=== PATIENT | male | born 1970 | race Two or more races ===

== ENCOUNTER 2020-06-04 09:20 | Outpatient (REF) | payer MEDICAID, SELFPAY | END 2020-06-04 09:21 | disposition home or self-care (01) | LOC: HO.LAB 09:20 | PROVIDERS: Visit Provider Internal Medicine | DX: Z20.822 Contact with and (suspected) exposure to COVID-19 (principal) | CPT/HCPCS: 36415; C9803; U0003; U0005 ==

== ENCOUNTER 2023-02-14 13:35 | Outpatient (AMB) | payer OTHER, SELFPAY ==
--- NOTE | 2023-02-14 13:36 | A.OFFPC_ITS ---
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: No Accompanied by: Self / Same As Patient Allergies No Known Allergies Allergy (Verified 02/14/23 13:47) Medication List - Last Reconciled 02/14/23 by Ladonna Tillman MD No Known Home Meds Tobacco use date assessed: 07/07/22 Dental Screening Dental Screen Date: 02/14/23 Did you have a dental visit in the last 12 months?: No Did you have a dental problem in the last 6 months where you did not have access to dental care?: No Was dental information given to patient?: Patient has dentist HPI HPI Comments History of Present Illness Details This is a 52-year-old male with history of hypertension that has been well controlled with diet and exercise. No chest pain or shortness of breath. Did not did Cologuard and will be referred for colonoscopy for screening for colon cancer. [facility] Surgical History History of vasectomy Family History Mother Alzheimer disease Father Myocardial infarction Social History Housing: Apartment Alcohol intake: never Patient Tobacco Use Status: Never used Tobacco e-Cigarette/Vaping Use: Never Used Second Hand Smoke Exposure: No service: No Current occupational status: employed Current occupational exposures/hazards: No Cognitive needs: No Hearing needs: No Vision needs: Yes Questionnaire Thrive Questionnaire Date Thrive assessed: 07/07/22 AVA-7 AMB Questionnaire AVA-7 Date AVA - 7 assessed: 07/07/22 Source: Developed by Drs. Yeyo Pompa, Ling Brantley, Devendra Hill and colleagues, with an educational sylvester from [employer] Review of Systems Const All systems reviewed & are unremarkable except as noted in HPI and below Eyes Reports no additional complaints, Denies change in vision and Denies other visual disturbances Card Denies chest pain at rest, Denies chest pain with activity, Denies edema, Denies irregular heart rhythm, Denies claudication, Denies dyspnea, Denies dyspnea on exertion, Denies orthopnea, Denies paroxysmal nocturnal dyspnea and Denies slow heart rate Resp Denies cough, Denies dyspnea and Denies dyspnea on exertion GI Denies abdominal pain, Denies change in bowel habits, Denies excessive flatus, Denies nausea and Denies vomiting Denies urinary hesitancy, Denies urinary incontinence and Denies urinary urgency Musc Denies abnormal gait, Denies atrophy, Denies deformity and Denies limited range of motion Skin/Breast Denies bleeding lesions, Denies changing lesions and Denies rash Neuro Denies abnormal gait and Denies lack of coordination Physical exam (Primary Care) Vital Signs: Last Vital Signs Pulse 79 02/14/23 13:37 BP 132/92 H 02/14/23 13:37 Pulse Ox 97 02/14/23 13:37 Oxygen Delivery Method Room Air 02/14/23 13:37 BMI result Body Mass Index 28.4 Tobacco/Smoking Status: Tobacco use Status Tobacco use date assessed 07/07/22 02/14/23 13:42 Patient Tobacco Use Status Never used Tobacco 02/14/23 13:42 e-Cigarette/Vaping Use Never Used 02/14/23 13:42 Thrive Assessment: Date of Thrive Assessment Date Thrive assessed 07/07/22 02/14/23 13:42 Eyes General: appearance normal, both eyes and all related structures Eyelids: Yes eyelids normal Conjunctivae: conjunctivae normal Neck Neck: Yes normal visual inspection and Yes supple Resp Effort & Inspection: normal respiratory effort Auscultation: clear to auscultation bilaterally Cardio Jugular venous distension: no JVD Rate: regular rate Rhythm: regular rhythm Heart sounds: S1 normal heart sound present and S2 normal heart sound present Extrem General: Yes full ROM Office Procedures Flu Questionnaire Does the patient have a severe egg allergy?: No Does the patient have severe life threatening allergies?: No Does the patient have a fever or illness today?: No Has the patient ever had Guillain-Madison Syndrome?: No Has the patient ever had any past reaction to a flu shot?: No Immunizations flu vacc [id number] 6mos up(PF) 60 mcg(15 mcgx4)/0.5 mL IM syringe Performing Provider: Ladonna Tillman MD [place] [facility] [place] [facility] Administered by: LORNA Reagan on 02/14/23 13:58 Dose Route Admin Location Dispensed Lot Number Expiration Date 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 VIS Given Date VIS Provided VIS Publication Date 02/14/23 Single Vaccine 20 Eligibility Eligibility Date Funding Source Not [place] Eligible 02/14/23 Private Assessment and Plan Assessment & Plan (1) Hypertension: Code(s): I10 - Essential (primary) hypertension Plan: Continue diet and exercise. Blood pressure goal is equal or less than 130/80. Orders: Orders Influenza [id number] Immunization Today Z23 - Encounter for immunization Referrals Open Access Screening Colonoscopy Referral Z12.11 - Encounter for screening for malignant neoplasm of colon Coding Level of Care Code Est Pt Level 3 (21395) Diagnoses Hypertension I10 Time Spent (min) 17
[2023-02-14 13:37] VITALS: BP 132/92; PULSE 79; O2SAT 97; BMI 28.4
== END 2023-02-14 13:58 | disposition home or self-care (01) ==
PROVIDERS: PCP Nurse Practitioner Family; Visit Provider Internal Medicine
DX: Z23 Encounter for immunization (principal); I10 Essential (primary) hypertension
CPT/HCPCS: 90471; 90686; 99213

== ENCOUNTER 2023-06-26 13:45 | Outpatient (AMB) | payer OTHER, SELFPAY ==
[2023-06-26 13:54] VITALS: BP 140/85; PULSE 73; BMI 29.0
--- NOTE | 2023-06-26 13:54 | MHC.OFFVIS ---
Intake Vital Signs 06/26/23 13:54 Height 5 ft 9 in Weight 196 lb 10.437 oz BMI 29.0 BP 140/85 H Blood Pressure Location Lt brachial Position Sitting Pulse 73 Intake Visit Reasons: Colonoscopy Screening Intake Note: New patient presents to in office visit today for colonoscopy screening. CC: This will be patient's first colonoscopy. Denies having any GI symptoms. Vice President Education Required: No Allergies No Known Allergies Allergy (Verified 06/26/23 13:59) HPI Colonoscopy Screening HPI Details 52 year old? male here today for pre colonoscopy screening.? Patient was sent to us by his PCP.? This is his first colonoscopy screening.? Patient denies any gastrointestinal symptoms in the past or at present.? Denies any personal or family history of gastrointestinal disease, colon polyps, or cancer.? Denies history of difficulty with sedation or anesthesia in the past.? Negative for history of sleep apnea.? Denies any history of cardiac, renal, pulmonary, or hepatic disease.?? No history of infectious? diseases like hepatitis A, B, C, HIV or tuberculosis.? Patient is not on any anticoagulation therapy. [facility] Surgical History History of vasectomy Family History Mother Alzheimer disease Father Myocardial infarction Social History Housing: Apartment Alcohol intake: never Patient Tobacco Use Status: Never used Tobacco e-Cigarette/Vaping Use: Never Used Second Hand Smoke Exposure: No service: No Current occupational status: employed Current occupational exposures/hazards: No Cognitive needs: No Hearing needs: No Vision needs: Yes Review of Systems Const Denies weight gain and Denies weight loss ENT Reports no additional complaints, Denies dysphagia and Denies odynophagia Card Reports no additional complaints Resp Reports no additional complaints GI Denies abdominal pain, Denies belching, Denies melena, Denies bloating, Denies change in bowel habits, Denies dysphagia, Denies excessive flatus, Denies dyspepsia, Denies heartburn, Denies diarrhea, Denies loose stools, Denies nausea, Denies odynophagia and Denies vomiting Reports no additional complaints Musc Reports no additional complaints Neuro Reports no additional complaints Psych Reports no additional complaints Endo Reports no additional complaints Physical Exam Vital Signs: Last Vital Signs Pulse 73 06/26/23 13:54 BP 140/85 H 06/26/23 13:54 BMI result Body Mass Index 29.0 Const General: healthy appearing, no acute distress and well developed Nutritional Appearance: well nourished Orientation/consciousness: patient oriented x3 Resp Effort & Inspection: normal respiratory effort, able to speak in complete sentences, no tracheal deviation and symmetric chest movement Auscultation: clear to auscultation bilaterally Cardio Rate: regular rate GI Inspection: Yes normal to inspection and No distended Palpation (GI): Soft to palpation, not firm, nontender and No hepatosplenomegaly present Auscultation: normal bowel sounds General: Yes no CVA tenderness Back/Spine/Pelvis Back: no CVA tenderness Skin General skin exam: elasticity normal, turgor normal and dry skin Neuro General: patient oriented x3 Psych Appearance: grossly normal Mental Status: mental status grossly normal Assessment & Plan Assessment & Plan (1) Screen for colon cancer: Code(s): Z12.11 - Encounter for screening for malignant neoplasm of colon Plan Patient denies any GI, cardiac or respiratory symptoms.? Denies any issues with anesthesia in the past.? Denies any history of sleep apnea.? No history infectious diseases in the past or present.? Not on any anticoagulation therapy.? No family or personal history of colon cancer or polyps.? Patient denies melena, hematochezia, unintentional weight loss or ribbon like stools.? Discussed at length the pre-procedure,? prep, diet & medications as well as what to expect prior, during and after the procedure.?? Stressed the importance of good bowel prep. ?Recommended the use of Vaseline or Calmoseptine OTC & baby wipes with bowel movements to promote comfort.? ?Patient verbalizes understanding and agrees to plan of care.? He was given the opportunity to ask questions and all questions answered.? We will see him after the procedure.? Medications: New bisacodyl (Dulcolax (bisacodyl)) take 4 tabs at noon the day before your colonoscopy 20 mg (4 x 5 mg) PO ONCE 1 day 4 tabs 0RF Z12.11 - Encounter for screening for malignant neoplasm of colon polyethylene glycol 3350 (Miralax) As directed by gastroenterology department at [facility] 238 grams PO ONCE 238 grams 0RF Z12.11 - Encounter for screening for malignant neoplasm of colon Coding Level of Care Code New Pt Level 3 (34100) Diagnoses Screen for colon cancer Z12.11 Time Spent (min) 40 Comment 30 minutes spent with patient and additional 10 minutes spent reviewing his records
== END 2023-06-26 14:45 | disposition home or self-care (01) ==
PROVIDERS: PCP Nurse Practitioner Family; Visit Provider Nurse Practitioner Family
DX: Z12.11 Encounter for screening for malignant neoplasm of colon (principal); Z01.818 Encounter for other preprocedural examination
CPT/HCPCS: 99203

== ENCOUNTER → 2023-06-26 13:45 | Outpatient (BNVA) | payer OTHER, SELFPAY | PROVIDERS: PCP Nurse Practitioner Family; Visit Provider Nurse Practitioner Family | DX: Z12.11 Encounter for screening for malignant neoplasm of colon (principal) | CPT/HCPCS: 99202 ==

== ENCOUNTER 2023-07-17 06:57 | Outpatient (REF) | payer OTHER, SELFPAY ==
[2023-07-17 08:06] LABS: Alanine Aminotransferase 21 U/L (0-40); Albumin Level 3.9 g/dL (3.5-5.0); Alkaline Phosphatase 79 U/L (39-117); Anion Gap 12 (12-20); Aspartate Amino Transferase 24 U/L (5-37); Bilirubin Total 0.6 mg/dL (0.0-1.0); Blood Urea Nitrogen 13 mg/dL (9-16); Calcium 9.1 mg/dL (8.4-10.2); Carbon Dioxide 24 mmol/L (22-29); Chloride 109 mmol/L (96-108); Cholesterol 195 mg/dL (<200); Estimated Glomerular Filt Rate > 60; Glucose Fasting 96 mg/dL (60-99); HDL Cholesterol 53 mg/dL (>40); LDL Cholesterol Calculated 132 mg/dL (<100); Potassium 3.8 mmol/L (3.3-5.1); Sodium 141 mmol/L (135-145); Total Protein 7.2 g/dL (6.5-8.0); Triglycerides 52 mg/dL (<150)
== END 2023-07-17 06:58 | disposition home or self-care (01) ==
LOC: HO.LAB 06:57
PROVIDERS: PCP Internal Medicine; Visit Provider Internal Medicine
DX: I10 Essential (primary) hypertension (principal)
CPT/HCPCS: 36415; 80053; 80061

== ENCOUNTER 2023-07-19 14:00 | Outpatient (AMB) | payer OTHER, SELFPAY ==
--- NOTE | 2023-07-19 14:04 | MHC.PC.OV ---
Vital Signs 07/19/23 14:05 Height 5 ft 9 in Weight 192 lb BMI 28.4 BP 120/82 Blood Pressure Location Lt brachial Position Sitting Intake Visit Reasons: pe Intake Note: Patient here for a physical exam Staff Physical Therapy Assistant Required: No Accompanied by: Self / Same As Patient Allergies No Known Allergies Allergy (Verified 07/19/23 14:11) Medication List - Last Reconciled 07/19/23 by Ladonna Tillman MD bisacodyl (Dulcolax (bisacodyl)) 20 mg (4 x 5 mg) PO ONCE 1 day polyethylene glycol 3350 (Miralax) 238 grams PO ONCE Tobacco use date assessed: 07/19/23 Dental Screening Dental Screen Date: 07/19/23 Did you have a dental visit in the last 12 months?: Yes Did you have a dental problem in the last 6 months where you did not have access to dental care?: No Was dental information given to patient?: Patient has dentist HPI HPI Comments History of Present Illness Details This is a 52-year-old male that comes for his physical exam. Had microscopic hematuria in the past and had nephrolithiasis. Urinalysis will be repeated. No history of cancer in the family. Colonoscopy will be done in August 2023. No chest pain or shortness of breath. [facility] Surgical History History of vasectomy Family History Mother Alzheimer disease Father Myocardial infarction Social History Housing: Apartment Alcohol intake: never Patient Tobacco Use Status: Never used Tobacco e-Cigarette/Vaping Use: Never Used Second Hand Smoke Exposure: No service: No Current occupational status: employed Current occupational exposures/hazards: No Cognitive needs: No Hearing needs: No Vision needs: Yes Questionnaire PHQ-9 Over the last 2 weeks, how often have you been bothered by any of the following problems? 1. Little interest or pleasure in doing things: not at all 2. Feeling down, depressed, or hopeless: not at all 3. Trouble falling or staying asleep, or sleeping too much: not at all 4. Feeling tired or having little energy: not at all 5. Poor appetite or overeating: not at all 6. Feeling bad about yourself - or that you are a failure or have let yourself or your family down: not at all 7. Trouble concentrating on things, such as reading the newspaper or watching television: not at all 8. Moving or speaking so slowly that other people could have noticed. Or the opposite - being so fidgety or restless that you have been moving around a lot more than usual: not at all 9. Thoughts that you would be better off or of hurting yourself in some way: not at all Total score: 0 Depression Screening Interpretation: Negative Depression Screening Done: Yes 81116 - PHQ-9 Billing: Yes Source: Developed by Drs. Yeyo Pompa, Ling Brantley, Devendra Hill and colleagues, with an educational sylvester from [employer]. Thrive Questionnaire Date Thrive assessed: 07/19/23 I am a: Patient What is your living situation today?: I have a steady place to live Within the past 12 months, did the food you bought not last and you didn't have the money to get more?: Never true Within the past 12 months, did you worry whether your food would run out before you got money to buy more?: Never true Do you have trouble paying for medicines?: No Do you have trouble getting transportation to medical appointments?: No Do you have trouble paying your heating and electricity bill?: No Do you have trouble taking care of your child, family member or friend?: No Do you have trouble with day-to-day activities such as bathing, preparing meals, shopping, managing finances, etc.?: No Are you currently unemployed and looking for a job?: No Are you interested in more education?: No Please select the resources that you would like help with: None Currently or been in a relationship where the following occur: no concerns reported THRIVE Score: 0 AUDIT C Alcohol Use Questionnaire (AUDIT-C) 1. How often do you have a drink containing alcohol?: Never Total Score: 0 Score Reviewed/Action Taken: No AVA-7 AMB Questionnaire AVA-7 Date AVA - 7 assessed: 07/19/23 Feeling nervous, anxious, or on edge: 0 = Not at all Not being able to stop or control worryin = Not at all Worrying too much about different things: 0 = Not at all Trouble relaxin = Not at all Being so restless that it is hard to sit still: 0 = Not at all Becoming easily annoyed or irritable: 0 = Not at all Feeling afraid as if something awful might happen: 0 = Not at all Total AVA-7 score (0-4 normal; 5-9 mild; 10-14 moderate; 15-21 severe): 0 Source: Developed by Drs. Yeyo Pompa, Ling Brantley, Devendra Hill and colleagues, with an educational sylvester from [employer]. AVA-7 Assessment Billing AVA-7 Assessment Tool: AVA-7 Assessment 31737 Review of Systems Const All systems reviewed & are unremarkable except as noted in HPI and below Eyes Reports no additional complaints, Denies change in vision and Denies other visual disturbances Card Denies chest pain at rest, Denies chest pain with activity, Denies edema, Denies irregular heart rhythm, Denies claudication, Denies dyspnea, Denies dyspnea on exertion, Denies orthopnea, Denies paroxysmal nocturnal dyspnea and Denies slow heart rate Resp Denies cough, Denies dyspnea and Denies dyspnea on exertion GI Denies abdominal pain, Denies change in bowel habits, Denies excessive flatus, Denies nausea and Denies vomiting Denies urinary hesitancy, Denies urinary incontinence and Denies urinary urgency Musc Denies abnormal gait, Denies atrophy, Denies deformity and Denies limited range of motion Skin/Breast Denies bleeding lesions, Denies changing lesions and Denies rash Neuro Denies abnormal gait, Denies behavioral changes, Denies confusion and Denies lack of coordination Psych Denies behavioral changes and Denies confusion Endo Denies cold intolerance Jean-Claude/Lymph Denies easy bleeding and Denies easy bruising Aller/Immun Denies urticaria Physical exam (Primary Care) Vital Signs: Last Vital Signs BP 120/82 07/19/23 14:05 BMI result Body Mass Index 28.4 Tobacco/Smoking Status: Tobacco use Status Tobacco use date assessed 07/19/23 07/19/23 14:09 Patient Tobacco Use Status Never used Tobacco 07/19/23 14:09 e-Cigarette/Vaping Use Never Used 07/19/23 14:09 PHQ-9: PHQ-9 Score PHQ-9: Total score 0 07/19/23 15:17 Depression Screening Interpretation: Negative Thrive Assessment: Date of Thrive Assessment Date Thrive assessed 07/19/23 07/19/23 14:09 Currently or been in a relationship where the following occur: no concerns reported Const General: No confusion Orientation/consciousness: patient oriented x3 and No confusion HENMT Head: Yes normal to inspection, Yes normocephalic and Yes atraumatic Ears: external ears normal General nose exam: Normal external nose present and No nasal discharge present Eyes General: appearance normal, both eyes and all related structures Eyelids: Yes eyelids normal Conjunctivae: conjunctivae normal Neck Neck: Yes normal visual inspection and Yes supple Resp Effort & Inspection: normal respiratory effort Auscultation: clear to auscultation bilaterally Cardio Jugular venous distension: no JVD Rate: regular rate Rhythm: regular rhythm Heart sounds: S1 normal heart sound present and S2 normal heart sound present GI Inspection: Yes normal to inspection Palpation (GI): Soft to palpation and nontender Auscultation: normal bowel sounds Skin General skin exam: no rashes or lesions noted Neuro General: patient oriented x3, no focal motor deficits and No confusion Extrem General: Yes full ROM Psych Appearance: grossly normal Results AMB Urinalysis, Automated UA Leukoctes 0 Raymond/uL Last Edit by LORNA Reagan on 07/19/23 14:26 UA Nitrite Negative Last Edit by LORNA Reagan on 07/19/23 14:26 UA Urobilinogen 0.2 mg/dL Last Edit by LORNA Reagan on 07/19/23 14:26 UA Protein 0 mg/dL Last Edit by LORNA Reagan on 07/19/23 14:26 UA pH 6.0 Last Edit by Anna Olivares Refugio on 07/19/23 14:26 UA Blood 0 Emmanuel/uL Last Edit by LORNA Reagan on 07/19/23 14:26 UA Specific [place] 1.030 Last Edit by LORNA Reagan on 07/19/23 14:26 UA Ketone Negative Last Edit by LORNA Reagan on 07/19/23 14:26 UA Bilirubin 0 mg/dL Last Edit by LORNA Reagan on 07/19/23 14:26 UA Glucose 0 mg/dL Last Edit by LORNA Reagan on 07/19/23 14:26 Results Reviewed Results Reviewed: Laboratory Last Values Urine pH (Auto) 6.0 07/19/23 14:24 Specific [place] (Auto) 1.030 07/19/23 14:24 Urine Protein (Auto) 0 mg/dL 07/19/23 14:24 Glucose (UA)(Auto) 0 mg/dL 07/19/23 14:24 Urine Ketones (Auto) Negative 07/19/23 14:24 Urine Blood (Auto) 0 Emmanuel/uL 07/19/23 14:24 Urine Nitrite (Auto) Negative 07/19/23 14:24 Urine Bilirubin (Auto) 0 mg/dL 07/19/23 14:24 Urine Urobilinogen (Auto) 0.2 mg/dL 07/19/23 14:24 Leukocyte Esterase (Auto) 0 Raymond/uL 07/19/23 14:24 Assessment and Plan Assessment & Plan (1) Physical exam: Code(s): Z00.00 - Encounter for general adult medical examination without abnormal findings Plan: Repeat in a year. Orders: Orders AMB Urinalysis Automated Today R31.29 - Other microscopic hematuria Coding Level of Care Code Est Pt Prev Care 40-64y(80861) Diagnoses Physical exam Z00.00 Additional Codes AVA-7 Assessment Billing - AVA-7 Assessment Tool: AVA-7 Assessment 20101 ([id number]) Time Spent (min) 31
[2023-07-19 14:05] VITALS: BP 120/82; BMI 28.4
== END 2023-07-19 14:21 | disposition home or self-care (01) ==
PROVIDERS: PCP Nurse Practitioner Family; Visit Provider Internal Medicine
DX: R31.29 Other microscopic hematuria (principal); Z00.00 Encounter for general adult medical examination without abnormal findings
CPT/HCPCS: 81003; 99396

== ENCOUNTER 2023-08-02 09:34 | Outpatient (REF) | payer OTHER, SELFPAY ==
--- NOTE | ~2023-08-02 | XR_ITS ---
EXAMINATION: XR BILATERAL KNEES CLINICAL INFORMATION: Pain in bilateral knees. COMPARISON: None available. TECHNIQUE: 3 views of each knee. FINDINGS: RIGHT KNEE: Moderate joint effusion. Tiny medial marginal and posterior patellar osteophytes. Mild narrowing of the medial compartment. LEFT KNEE: Moderate joint effusion. Mild narrowing of the medial compartment. Tiny medial marginal and posterior patellar osteophytes. XR/XR knee LT 3V IMPRESSION: 1. 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 2. Moderate bilateral joint effusions.
--- NOTE | ~2023-08-02 | XR_ITS ---
EXAMINATION: XR BILATERAL KNEES CLINICAL INFORMATION: Pain in bilateral knees. COMPARISON: None available. TECHNIQUE: 3 views of each knee. FINDINGS: RIGHT KNEE: Moderate joint effusion. Tiny medial marginal and posterior patellar osteophytes. Mild narrowing of the medial compartment. LEFT KNEE: Moderate joint effusion. Mild narrowing of the medial compartment. Tiny medial marginal and posterior patellar osteophytes. XR/XR knee RT 3V IMPRESSION: 1. 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 2. Moderate bilateral joint effusions.
== END 2023-08-02 09:35 | disposition home or self-care (01) ==
LOC: HO.HOSX 09:34
PROVIDERS: Visit Provider Orthopaedic Surgery
DX: M25.561 Pain in right knee (principal); M25.562 Pain in left knee
CPT/HCPCS: 73562; 99202

== ENCOUNTER 2023-08-02 13:32 | Outpatient (AMB) | payer OTHER, SELFPAY ==
[2023-08-02 13:52] VITALS: BMI 28.4
--- NOTE | 2023-08-02 13:52 | A.OFFVIS_ITS ---
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 The patient describes his pains as sharp in nature. Most of his pain is along medial aspect of his right knee. He states that his right knee will give out several times per day. His symptoms have gotten worse over the last few months in spite of continued non operative treatments. Has tried Tylenol and anti-inflammatory medicines which gave him minimal relief. He has also done physical therapy exercises which aggravated his pain. 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 Allergies No Known Allergies Allergy (Verified 08/02/23 14:01) Medication List - Last Reconciled 08/02/23 by Mauro Ordonez MD bisacodyl (Dulcolax (bisacodyl)) 20 mg (4 x 5 mg) PO ONCE 1 day polyethylene glycol 3350 (Miralax) 238 grams PO ONCE PFSH Surgical History History of vasectomy Family History Mother Alzheimer disease Father Myocardial infarction Social History (Updated 08/02/23 @ 14:02 by Marylin Barroso CMA) Housing: Apartment Alcohol intake: never Patient Tobacco Use Status: Never used Tobacco e-Cigarette/Vaping Use: Never Used Second Hand Smoke Exposure: No service: No Current occupational status: employed 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 Current occupational exposures/hazards: No Cognitive needs: No Hearing needs: No Vision needs: Yes Physical Exam Vital Signs: BMI result Body Mass Index 28.4 Const Other: Well-nourished well-developed very friendly male awake alert and oriented x3 in no acute distress Extrem Other: Bilateral lower extremity examination shows good capillary refill, no skin lesions noted, normal sensation light touch Bilateral knee examination shows minimal effusions, minimal crepitus with range of motion, tenderness along his medial joint lines, positive Cheko's test, no instability Results Reviewed Results Reviewed: Standing full weight-bearing x-rays of the patient's bilateral knee show minimal joint space narrowing, no acute bony abnormalities Assessment & Plan Assessment & Plan (1) Right knee pain: Code(s): M25.561 - Pain in right knee (2) Left knee pain: Code(s): M25.562 - Pain in left knee Plan Mr. Gibbs presents with bilateral knee pains and mechanical symptoms, right greater than left, most likely due to a tear of his medial meniscus. Thus, I will send the patient for an MRI of his right knee for further evaluation. If he does have a significant tear I will recommend arthroscopic surgery to optimize his future functional level. I will see the patient back after the MRI to discuss the findings and treatment options. Feel free to call me at any time should questions regarding his orthopedic management arise. Thank you very much for asking me to see this very friendly gentleman. I spent 22 minutes in reviewing the patient's records and imaging studies, seeing the patient and documenting in the medical record. Orders: Orders XR knee LT 3V Today M25.562 - Pain in left knee XR knee RT 3V Today M25.561 - Pain in right knee MR knee RT wo con Today M25.561 - Pain in right knee Coding Level of Care Code New Pt Level 2 (21431) Diagnoses Right knee pain M25.561 Left knee pain M25.562
== END 2023-08-02 14:31 | disposition home or self-care (01) ==
PROVIDERS: PCP Internal Medicine; Visit Provider Orthopaedic Surgery
DX: M25.561 Pain in right knee (principal); M25.562 Pain in left knee
CPT/HCPCS: 99202

== ENCOUNTER 2023-08-28 17:35 | Outpatient (REF) | payer OTHER, SELFPAY ==
--- NOTE | ~2023-08-28 | MR_ITS ---
EXAMINATION: MR KNEE WITHOUT CONTRAST, RIGHT CLINICAL INFORMATION: Right knee pain and swelling. COMPARISON: Right knee radiographs dated 08/02/2023. TECHNIQUE: MRI of the knee without contrast was performed using routine sequences on a high-field scanner. FINDINGS: MENISCI: Medial Meniscus: Irregular oblique inner margin and tibial articular surface tearing of the meniscal body extending into the posterior horn. Lateral Meniscus: Partially discoid lateral meniscus without tearing. LIGAMENTS: Cruciate: Intact. Collateral: Mild thickening of the medial collateral ligament consistent with a remote injury. No evidence of acute collateral ligament injury. EXTENSOR MECHANISM: Intact quadriceps and patellar tendons. No patella laura. TT-TG distance within normal limits. Edema within the superolateral aspect of Hoffa's fat pad, which can be seen in the setting of patellar tendon-lateral femoral condyle friction syndrome. ARTICULAR CARTILAGE/BONE: Patellofemoral Compartment: Lateral patellar facet articular cartilage signal heterogeneity with delamination and mild subchondral cystic change measuring up to 0.9 cm in ML dimension. Tiny marginal osteophytes. Medial Compartment: Weightbearing articular cartilage signal heterogeneity and surface irregularity with areas of chra-rspx-jngnbtdph loss. Small marginal osteophytes. Lateral Compartment: Posterior weightbearing lateral femoral condyle partial-thickness articular cartilage defect. Tiny marginal osteophytes. JOINT FLUID AND BURSAE: Small joint effusion. MR/MR knee RT wo con IMPRESSION: 1. Irregular oblique inner margin and tibial articular surface tearing of the medial meniscal body and posterior horn. 2. Partially discoid lateral meniscus without tearing. 3. Edema within the superolateral aspect of Hoffa's fat pad, which can be seen in the setting of patellar tendon-lateral femoral condyle friction syndrome. 4. Mild tricompartmental osteoarthritis. Small joint effusion.
== END 2023-08-28 17:36 | disposition home or self-care (01) ==
LOC: HO.MRI 17:35
PROVIDERS: PCP Internal Medicine; Visit Provider Orthopaedic Surgery
DX: M25.561 Pain in right knee (principal)
CPT/HCPCS: 73721

== ENCOUNTER 2023-09-05 08:44 | Outpatient (AMB) | payer OTHER, SELFPAY ==
[2023-09-05 08:58] VITALS: BMI 28.4
--- NOTE | 2023-09-05 08:58 | A.OFFVIS_ITS ---
Vital Signs 09/05/23 08:58 Height 5 ft 9 in Weight 192 lb BMI 28.4 Intake Visit Reasons: ov- Right Knee MRI review Intake Note: Dhruv is a 53 year old male who presents with complaints of progressively worsening right knee pain and giving way. He describes his pain as sharp in nature. Most of the pain is along the medial aspect of his knee. The patient has failed conservative treatment over the last 6 weeks. He has had injections and physical therapy which seemed to aggravate his pain. The patient has tried Tylenol and anti-inflammatory medicines which gave him only mild relief. He states that his right knee will give out several times per day. 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: [id number] Allergies No Known Allergies Allergy (Verified 09/05/23 09:39) Medication List - Last Reconciled 09/05/23 by Mauro Ordonez MD bisacodyl (Dulcolax (bisacodyl)) 20 mg (4 x 5 mg) PO ONCE 1 day polyethylene glycol 3350 (Miralax) 238 grams PO ONCE PFSH Surgical History History of vasectomy Family History Mother Alzheimer disease Father Myocardial infarction Social History Housing: Apartment Alcohol intake: never Patient Tobacco Use Status: Never used Tobacco e-Cigarette/Vaping Use: Never Used Second Hand Smoke Exposure: No service: No Current occupational status: employed 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 Current occupational exposures/hazards: No Cognitive needs: No Hearing needs: No Vision needs: Yes Physical Exam Vital Signs: BMI result Body Mass Index 28.4 Const Other: Well-nourished well-developed very friendly male awake alert and oriented x3 in no acute distress Extrem Other: Bilateral lower extremity examination shows good capillary refill, no skin lesions noted, normal sensation light touch Right knee examination shows a minimal effusion, minimal crepitus with range of motion, tenderness along his medial joint line, positive Cheko's test, no instability Results Reviewed Results Reviewed: Standing full weight-bearing x-rays of the patient's right knee show minimal joint space narrowing, no acute bony abnormalities MRI of the patient's right knee shows minimal diffuse degenerative changes, a tear of the medial meniscus, no acute bony abnormalities Assessment & Plan Assessment & Plan (1) Tear of medial meniscus of right knee: Code(s): S83.241A - Other tear of medial meniscus, current injury, right knee, initial encounter Category: Medical Plan Mr. Gibbs presents with progressively worsening right knee pain and mechanical symptoms due to a tear of his medial meniscus. I had a lengthy discussion with the patient regarding the treatment options. At this point the patient appears to be failing continued non operative treatments. He is considering undergoing right knee arthroscopic surgery later this year. He will contact my office to pick a surgery date when he is ready to do so. Surgery will involve right knee diagnostic arthroscopy with arthroscopic partial medial meniscectomy. The patient does understand that he may not get 100% relief of his symptoms depending on the severity of his degenerative changes. The patient will follow- up as instructed. Feel free to call me at any time should questions regarding his orthopedic management arise. I spent 20 minutes in reviewing the patient's records and imaging studies, seeing the patient and documenting in the medical record. Coding Level of Care Code Est Pt Level 3 (10429) Diagnoses Tear of medial meniscus of right knee S83.241A
== END 2023-09-05 09:48 | disposition home or self-care (01) ==
PROVIDERS: PCP Internal Medicine; Visit Provider Orthopaedic Surgery
DX: S83.241A Other tear of medial meniscus, current injury, right knee, initial encounter (principal)
CPT/HCPCS: 99213

== ENCOUNTER → 2023-09-05 08:44 | Outpatient (BNVA) | payer OTHER, SELFPAY | PROVIDERS: PCP Internal Medicine; Visit Provider Orthopaedic Surgery | DX: S83.241A Other tear of medial meniscus, current injury, right knee, initial encounter (principal) | CPT/HCPCS: 99212 ==

== ENCOUNTER 2023-09-19 09:37 | Day surgery (SDC) | payer OTHER, SELFPAY ==
[2023-09-19 10:24] VITALS: BMI 27.7
[2023-09-19 10:27] VITALS: BP 122/83; PULSE 83; RESP 15; TEMP 36.2; O2SAT 99
[2023-09-19] MEDS: Lactated Ringers 1,000 ML 100 ML IVCONT (10:38)
--- NOTE | 2023-09-19 10:54 | MHC.SHP ---
Pre-Procedural Eval Section A - 24 Hr Update-Section A only Date of Service: 09/19/23 Section B - Complete if H&P > 30 days Chief Complaint: screening Details of Present Illness: History of vasectomy Family History Mother Alzheimer disease Father Myocardial infarction Allergies: Allergies Allergy/AdvReac Type Severity Reaction Status Date / Time No Known Allergies Allergy Verified 09/19/23 10:21 Review of Systems Review of Systems Comment: 10 point ROS negative Exam Exam Comment: Gen appear: No acute distress HEENT: no icterus Chest: No overt resp distress Abd: soft, nontender, nondistended Psych: Stable affect, answering questions appropriately Neuro: A/Ox3 noted to move all extremities spontaneously Ext: no peripheral edema Plan Diagnosis/Plan: Unchanged I have reviewed the history and physical and performed a pertinent physical examination on my patient. No changes have occurred unless specified. Time Spent With Patient Time: Total time managing care of this patient today ____ minutes.
--- NOTE | 2023-09-19 11:50 | P.CONAN_ITS ---
Documented by User: Rosalind Ruiz NP 09/18/23 12:01 HPI - Anesthesia Eval Consult details Narrative: 53yo M for Colonoscopy [facility] Active Problems Active Problems: All Active Problems Tear of medial meniscus of right knee (Acute) Right knee pain (Acute) Left knee pain (Acute) Nephrolithiasis (Acute) Microscopic hematuria (Acute) Physical exam (Acute) Blurry vision (Acute) Hypertension (Acute) Past Medical History Medical History (Updated 09/19/23 @ 10:19 by Kelly Kirk RN) Hypertension Family History Family History Mother Alzheimer disease Father Myocardial infarction Surgical History Surgical History History of vasectomy Social History Social History Housing: Apartment Alcohol intake: never Patient Tobacco Use Status: Never used Tobacco e-Cigarette/Vaping Use: Never Used Second Hand Smoke Exposure: No Use of substances other than those prescribed or required for medical reasons: No Are you DNR?: No Advance Directives: No Advance Directives Information Provided: Yes service: No Current occupational status: employed 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 Current occupational exposures/hazards: No Cognitive needs: No Hearing needs: No Vision needs: Yes Meds Allergies Allergy/AdvReac Type Severity Reaction Status Date / Time No Known Allergies Allergy Verified 09/19/23 10:21 Home Medications ?Medication ?Instructions ?Recorded ?Confirmed ?Last Taken ?Type No Known Home Meds 09/19/23 09/19/23 Unknown History Assessment and Plan Assessment Anesthesia Assessment: Chart Reviewed Documented by User: Kelly Saldana DO 09/19/23 11:52 [facility] Past Medical History Medical History (Updated 09/19/23 @ 10:19 by Kelly Kirk RN) Hypertension Family History Family History Mother Alzheimer disease Father Myocardial infarction Family history of problems with anesthesia: No Surgical History Surgical History History of vasectomy History of Problems with Anesthesia: No Social History Social History Housing: Apartment Alcohol intake: never Patient Tobacco Use Status: Never used Tobacco e-Cigarette/Vaping Use: Never Used Second Hand Smoke Exposure: No Use of substances other than those prescribed or required for medical reasons: No Are you DNR?: No Advance Directives: No Advance Directives Information Provided: Yes service: No Current occupational status: employed 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 Current occupational exposures/hazards: No Cognitive needs: No Hearing needs: No Vision needs: Yes Meds Allergies Allergy/AdvReac Type Severity Reaction Status Date / Time No Known Allergies Allergy Verified 09/19/23 10:21 Home Medications ?Medication ?Instructions ?Recorded ?Confirmed ?Last Taken ?Type No Known Home Meds 09/19/23 09/19/23 Unknown History Exam Exam Date and Time: September 19, 2023 115 Height,Weight and Vital Signs: Height 5 ft 8 in Weight 82.554 kg Vital Signs Temperature 97.2 F 09/19/23 10:27 Pulse Rate 83 09/19/23 10:27 Respiratory Rate 15 09/19/23 10:27 Blood Pressure 122/83 09/19/23 10:27 Pulse Oximetry 99 09/19/23 10:27 Oxygen Delivery Method Room Air 09/19/23 10:27 Temperature 97.2 F 09/19/23 10:27 Pulse Rate 83 09/19/23 10:27 Respiratory Rate 15 09/19/23 10:27 Blood Pressure 122/83 09/19/23 10:27 Pulse Oximetry 99 09/19/23 10:27 Oxygen Delivery Method Room Air 09/19/23 10:27 Airway Mallampati Class: I TM Dist: >3cm Neck ROM: Full Loose/Missing/Broken Teeth: Yes (poor dentition) Heart: S1S2 Lungs: CTAB Assessment and Plan Assessment Anesthesia Assessment: Anesthesia Plan Discussed and Chart Reviewed Final Anesthetic Review Family History of Problems with Anesthesia: No History of Problems with Anesthesia: No NPO: Yes ASA Class: II Final Preanesthetic Review: No Changes in Pt Med Stat, Meds/Allgs Chart Reviewed, Consent Obtained/Reviewed and Anes Risks/Benef Reviewed Patient Risk: Low Procedure Risk: Low Anesthetic Plan Anesthetic Plan: MAC: and Agree w/ Assess. and Plan Disposition: Standard PACU
[2023-09-19 12:46] VITALS: BP 101/67; PULSE 78; RESP 12; TEMP 36.3; O2SAT 96
--- NOTE | 2023-09-19 12:47 | P.OPN-COLO_ITS ---
Colonoscopy Operative Note Operative Note Date of Service: 09/19/23 Narrative: Procedure: Colonoscopy Indication: Screening Endoscopist: Cielo Scruggs MD Anesthesia Provider: Jennyfer Cleaning CRNA Anesthesia type: MAC Instrument: Olympus [id number]-[id number] Consent: Indication, risks vs benefits, and alternatives were discussed with the patient who gave written informed consent to proceed. EKG, pulse, pulse oximetry and blood pressure were monitored throughout the procedure. Please see anesthesia flowsheet. Procedure: The patient was brought to the procedure room and placed in the left lateral decubitus position. IV medications were administered by the anesthesia provider in attendance. A digital rectal exam was performed which was normal. A distal attachment cap was affixed to the tip of the colonoscope which was then inserted through the anus and advanced through the colon to the cecum at 70 cm,and terminal ileum. Appendiceal orifice and ileocecal valve were identified. Mucosa was carefully examined under high definition white light as the instrument was slowly withdrawn in a retrograde panoramic fashion. Retroflexion was performed in rectum. The procedure was not difficult. There were no immediate obvious complications. The quality of the prep was BBPS: 2+3+3 = adequate Withdrawal time 20 minutes. Limitations: No limitations. Findings: Mucosa: Normal to cecum and terminal ileum. Protruding lesions: * 1 sessile polyp of size 2 mm in ascending colon. Cold snare polypectomy was performed. The polyp was completely removed and retrieved. * 2 sessile polyp of size 4-7 mm in transverse colon. Cold snare polypectomy was performed. The polyps were completely removed and retrieved. * 1 sessile polyp of size 8 mm in descending colon. Cold snare polypectomy was performed. The polyp was completely removed and retrieved. * Medium external hemorrhoids without stigmata of recent bleeding. Impression: 1. Normal colon and terminal ileum mucosa 2. Total of 4 polyps removed 3. Internal hemorrhoids Recommendations: - Follow path results. - Repeat colonoscopy in 3-5 years depending on results.
[2023-09-19 13:01] VITALS: BP 106/78; PULSE 69; RESP 16; TEMP 36.3; O2SAT 97
== END 2023-09-19 14:16 | disposition home or self-care (01) ==
PROVIDERS: PCP Internal Medicine; Visit Provider Internal Medicine
PROC: 0DJD8ZZ Inspection of Lower Intestinal Tract, Via Natural or Artificial Opening Endoscopic (ICD-10-PCS; CPT 45378; principal; 2023-09-19 11:30)
DX: Z12.11 Encounter for screening for malignant neoplasm of colon (principal); D12.2 Benign neoplasm of ascending colon; D12.3 Benign neoplasm of transverse colon; D12.4 Benign neoplasm of descending colon; K64.8 Other hemorrhoids; K64.4 Residual hemorrhoidal skin tags
CPT/HCPCS: 45385; 88305; J2704

== ENCOUNTER → 2023-09-19 09:37 | Outpatient (BNV) | payer OTHER, SELFPAY | PROVIDERS: PCP Internal Medicine; Visit Provider Internal Medicine | DX: Z12.11 Encounter for screening for malignant neoplasm of colon (principal); D12.4 Benign neoplasm of descending colon; D12.3 Benign neoplasm of transverse colon; D12.2 Benign neoplasm of ascending colon | CPT/HCPCS: 45385 ==

== ENCOUNTER 2023-10-03 14:01 | Outpatient (AMB) | payer OTHER, SELFPAY ==
--- NOTE | 2023-10-03 14:20 | MHC.OFFVIS ---
Vital Signs 10/03/23 14:42 Height 5 ft 8 in Weight 193 lb 9.054 oz BMI 29.4 BP 124/80 Blood Pressure Location Lt brachial Position Sitting Pulse 74 Pulse Source Pulse Oximeter Pulse Oximetry (%) 98 Oxygen Delivery Method Room Air Intake Visit Reasons: s/P colo; Dr. Scruggs Intake Note: Dhruv presents in office today for FUV post colo sp CC; Pt reports that they feel stable currently, pt denies any significant sx or concerns since their procedure. Denture Technician Required: Yes Denture Technician Name: [id number] George Information Interpreted: non-clinical & clinical Allergies No Known Allergies Allergy (Verified 10/03/23 14:41) HPI HPI s/P colo; Dr. Scruggs: Details: LAST VISIT: Screen for colon cancer Plan Patient denies any GI, cardiac or respiratory symptoms.? Denies any issues with anesthesia in the past.? Denies any history of sleep apnea.? No history infectious diseases in the past or present.? Not on any anticoagulation therapy.? No family or personal history of colon cancer or polyps.? Patient denies melena, hematochezia, unintentional weight loss or ribbon like stools.? Discussed at length the pre-procedure,? prep, diet & medications as well as what to expect prior, during and after the procedure.?? Stressed the importance of good bowel prep. ?Recommended the use of Vaseline or Calmoseptine OTC & baby wipes with bowel movements to promote comfort.? ?Patient verbalizes understanding and agrees to plan of care.? He was given the opportunity to ask questions and all questions answered.? We will see him after the procedure.? Medications New bisacodyl (Dulcolax (bisacodyl)) take 4 tabs at noon the day before your colonoscopy 20 mg (4 x 5 mg) PO ONCE 1 day 4 tabs 0RF Z12.11 polyethylene glycol 3350 (Miralax) As directed by gastroenterology department at [facility] 238 grams PO ONCE 238 grams 0RF Z12.11 COLONOSCOPY: Findings: Mucosa: Normal to cecum and terminal ileum. Protruding lesions: 1 sessile polyp of size 2 mm in ascending colon. Cold snare polypectomy was performed. The polyp was completely removed and retrieved. 2 sessile polyp of size 4-7 mm in transverse colon. Cold snare polypectomy was performed. The polyps were completely removed and retrieved. 1 sessile polyp of size 8 mm in descending colon. Cold snare polypectomy was performed. The polyp was completely removed and retrieved. Medium external hemorrhoids without stigmata of recent bleeding. Impression: 1. Normal colon and terminal ileum mucosa 2. Total of 4 polyps removed 3. Internal hemorrhoids Recommendations: - Follow path results. - Repeat colonoscopy in 3-5 years depending on results. PATHOLOGY RESULTS: Diagnosis A. Colon, ascending, polyp: Tubular adenoma, completely excised; negative for high-grade dysplasia and carcinoma. B. Colon, transverse, polyps: Tubular adenomas (3 pieces); negative for high-grade dysplasia and carcinoma. C. Colon, descending, polyp: Tubular adenoma, completely excised; negative for high-grade dysplasia and carcinoma TODAY'S VISIT: Patient is here today for follow-up and to discuss colonoscopy results. Patient denies any ill effects from the prep, anesthesia or procedure itself. Patient reports that he has been doing well and moving his bowels without any issues. Denies melena, hematochezia. For polyps found, tubular adenoma without high-grade dysplasia or carcinoma. Patient denies any family history of colorectal cancer. Denies any GI concerning symptoms today. 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 Current occupational exposures/hazards: No Cognitive needs: No Hearing needs: No Vision needs: Yes Review of Systems Const Denies weight gain and Denies weight loss ENT Reports no additional complaints, Denies dysphagia and Denies odynophagia Card Reports no additional complaints Resp Reports no additional complaints GI Denies abdominal pain, Denies belching, Denies melena, Denies bloating, Denies change in bowel habits, Denies dysphagia, Denies excessive flatus, Denies dyspepsia, Denies heartburn, Denies diarrhea, Denies loose stools, Denies nausea, Denies odynophagia and Denies vomiting Reports no additional complaints Musc Reports no additional complaints Neuro Reports no additional complaints Psych Reports no additional complaints Endo Reports no additional complaints Physical Exam Vital Signs: Last Vital Signs Pulse 74 10/03/23 14:42 BP 124/80 10/03/23 14:42 Pulse Ox 98 10/03/23 14:42 Oxygen Delivery Method Room Air 10/03/23 14:42 BMI result Body Mass Index 29.4 Const General: healthy appearing and no acute distress Nutritional Appearance: obese Orientation/consciousness: patient oriented x3 Resp Effort & Inspection: normal respiratory effort, able to speak in complete sentences, no tracheal deviation and symmetric chest movement Auscultation: clear to auscultation bilaterally Cardio Rate: regular rate GI Inspection: Yes normal to inspection, No distended and Yes obesity Palpation (GI): Soft to palpation, not firm, nontender and No hepatosplenomegaly present Auscultation: normal bowel sounds General: Yes no CVA tenderness Back/Spine/Pelvis Back: no CVA tenderness Skin General skin exam: elasticity normal, turgor normal and dry skin Neuro General: patient oriented x3 Psych Appearance: grossly normal Mental Status: mental status grossly normal Assessment & Plan Assessment & Plan (1) Tubular adenoma of colon: Code(s): D12.6 - Benign neoplasm of colon, unspecified Category: Medical (2) Status post colonoscopy: Code(s): Z98.890 - Other specified postprocedural states Plan Tubular adenoma without high-grade dysplasia or carcinoma found. Patient will return for colorectal screening in 3 years, sooner if clinically necessary. Patient currently has no GI concerning symptoms and will follow-up with us if he will experience any GI concerning symptoms. He is agreeable to this plan and verbalizes understanding of instructions. He was given the opportunity to ask questions and all questions answered. Thank you for allowing me to participate in his care Coding Level of Care Code Est Pt Level 3 (68501) Diagnoses Tubular adenoma of colon D12.6 Status post colonoscopy Z98.890 Time Spent (min) 30 Comment 20 minutes spent with patient and additional 10 minutes spent reviewing his records
[2023-10-03 14:42] VITALS: BP 124/80; PULSE 74; O2SAT 98; BMI 29.4
== END 2023-10-03 15:31 | disposition home or self-care (01) ==
PROVIDERS: PCP Nurse Practitioner Family; Visit Provider Nurse Practitioner Family
DX: D12.6 Benign neoplasm of colon, unspecified (principal); Z98.890 Other specified postprocedural states
CPT/HCPCS: 99213

== ENCOUNTER → 2023-10-03 14:01 | Outpatient (BNVA) | payer OTHER, SELFPAY | PROVIDERS: PCP Nurse Practitioner Family; Visit Provider Nurse Practitioner Family | DX: D12.2 Benign neoplasm of ascending colon (principal); D12.3 Benign neoplasm of transverse colon; D12.4 Benign neoplasm of descending colon; Z98.890 Other specified postprocedural states | CPT/HCPCS: 99212 ==

== ENCOUNTER 2024-07-22 14:08 | Outpatient (AMB) | payer OTHER, SELFPAY ==
--- NOTE | 2024-07-22 14:11 | MHC.PC.OV ---
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 Required: No Accompanied by: Self / Same As Patient Allergies No Known Allergies Allergy (Verified 07/22/24 14:26) Medication List - Last Reconciled 07/22/24 by Ladonna Tillman MD No Known Home Meds Tobacco use date assessed: 07/22/24 Dental Screening Dental Screen Date: 07/22/24 Did you have a dental visit in the last 12 months?: Yes Did you have a dental problem in the last 6 months where you did not have access to dental care?: No Was dental information given to patient?: Patient has dentist HPI HPI Comments History of Present Illness Details The patient is a 53-year-old male presenting for his annual wellness examination. During the conversation, it was noted that the patient underwent a colonoscopy last year, during which four adenomatous polyps were removed. The recommendation was for follow-up colonoscopy to be performed in three to five years, depending on the characteristics of the removed polyps. The patient confirmed understanding that if a polyp was hyperplastic, the next colonoscopy would be in 10 years as the risk of developing colorectal cancer is lower, while tubular adenomas would necessitate a repeat colonoscopy in five years, and villous adenomas in three years. Additionally, a discussion regarding vaccinations revealed that the patient may not have received a tetanus vaccine within the last 10 years, and there was a need to administer the vaccine during this visit. The patient recalled his last tetanus vaccination happened a long time ago, indicating it has likely been over a decade since the last dose. Family medical history was reviewed, revealing that the patient's mother had Alzheimer's disease, while the father had a gastrointestinal condition that led to vomiting before his . No specific diagnosis was disclosed. The patient's social history included a vasectomy, abstinence from smoking and alcohol, and no use of any medications or known drug allergies. Recent laboratory results from the previous year were within normal limits, and repeat testing is planned for this visit to ensure ongoing health maintenance. - Colonoscopy completed last year; repeat colonoscopy recommended in 3-5 years due to adenomatous polyps. - Tetanus vaccination due; to be administered today. - Annual laboratory tests planned to ensure continued health maintenance. 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 1. Little interest or pleasure in doing things: not at all 2. Feeling down, depressed, or hopeless: not at all 3. Trouble falling or staying asleep, or sleeping too much: not at all 4. Feeling tired or having little energy: not at all 5. Poor appetite or overeating: not at all 6. Feeling bad about yourself - or that you are a failure or have let yourself or your family down: not at all 7. Trouble concentrating on things, such as reading the newspaper or watching television: not at all 8. Moving or speaking so slowly that other people could have noticed. Or the opposite - being so fidgety or restless that you have been moving around a lot more than usual: not at all 9. Thoughts that you would be better off or of hurting yourself in some way: not at all Total score: 0 Depression Screening Interpretation: Negative Depression Screening Done: Yes 93578 - PHQ-9 Billing: Yes Source: Developed by Drs. Yeyo Pompa, Ling Brantley, Devendra Hill and colleagues, with an educational sylvester from [employer]. Thrive Questionnaire Date Thrive assessed: 07/22/24 I am a: Patient What is your living situation today?: I have a steady place to live Within the past 12 months, did the food you bought not last and you didn't have the money to get more?: Never true Within the past 12 months, did you worry whether your food would run out before you got money to buy more?: Never true Do you have trouble paying for medicines?: No Do you have trouble getting transportation to medical appointments?: No Do you have trouble paying your heating and electricity bill?: No Do you have trouble taking care of your child, family member or friend?: No Do you have trouble with day-to-day activities such as bathing, preparing meals, shopping, managing finances, etc.?: No Are you currently unemployed and looking for a job?: No Are you interested in more education?: No Please select the resources that you would like help with: None Currently or been in a relationship where the following occur: No concerns reported THRIVE Score: 0 AUDIT C Alcohol Use Questionnaire (AUDIT-C) 1. How often do you have a drink containing alcohol?: Never Total Score: 0 Score Reviewed/Action Taken: No AVA-7 AMB Questionnaire AVA-7 Date AVA - 7 assessed: 07/22/24 Feeling nervous, anxious, or on edge: 0 = Not at all Not being able to stop or control worryin = Not at all Worrying too much about different things: 0 = Not at all Trouble relaxin = Not at all Being so restless that it is hard to sit still: 0 = Not at all Becoming easily annoyed or irritable: 0 = Not at all Feeling afraid as if something awful might happen: 0 = Not at all Total AVA-7 score (0-4 normal; 5-9 mild; 10-14 moderate; 15-21 severe): 0 Source: Developed by Drs. Yeyo Pompa, Ling Brantley, Devendra Hill and colleagues, with an educational sylvester from [employer]. AVA-7 Assessment Billing AVA-7 Assessment Tool: AVA-7 Assessment 47413 Review of Systems Const All systems reviewed & are unremarkable except as noted in HPI and below Card Denies chest pain at rest, Denies chest pain with activity, Denies edema, Denies irregular heart rhythm, Denies claudication, Denies dyspnea, Denies dyspnea on exertion, Denies orthopnea, Denies paroxysmal nocturnal dyspnea and Denies slow heart rate Resp Denies cough, Denies dyspnea and Denies dyspnea on exertion GI Denies abdominal pain, Denies change in bowel habits, Denies excessive flatus, Denies nausea and Denies vomiting Denies urinary hesitancy, Denies urinary incontinence and Denies urinary urgency Musc Denies abnormal gait, Denies atrophy, Denies deformity and Denies limited range of motion Neuro Denies abnormal gait, Denies behavioral changes and Denies lack of coordination Psych Denies behavioral changes Physical exam (Primary Care) Vital Signs: Last Vital Signs BP 116/80 07/22/24 14:12 BMI result Body Mass Index 28.9 Tobacco/Smoking Status: Tobacco use Status Tobacco use date assessed 07/22/24 07/22/24 14:18 Patient Tobacco Use Status Never used Tobacco 07/22/24 14:18 e-Cigarette/Vaping Use Never Used 07/22/24 14:18 PHQ-9: PHQ-9 Score PHQ-9: Total score 0 07/22/24 14:37 Depression Screening Interpretation: Negative Thrive Assessment: Date of Thrive Assessment Date Thrive assessed 07/22/24 07/22/24 14:18 Currently or been in a relationship where the following occur: No concerns reported [facility] Head: Yes normal to inspection, Yes normocephalic and Yes atraumatic Ears: external ears normal Eyes General: appearance normal, both eyes and all related structures Eyelids: Yes eyelids normal Conjunctivae: conjunctivae normal Neck Neck: Yes normal visual inspection and Yes supple Resp Effort & Inspection: normal respiratory effort Auscultation: clear to auscultation bilaterally Cardio Jugular venous distension: no JVD Rate: regular rate Rhythm: regular rhythm Heart sounds: S1 normal heart sound present and S2 normal heart sound present GI Inspection: Yes normal to inspection Palpation (GI): Soft to palpation and nontender Auscultation: normal bowel sounds Skin General skin exam: no rashes or lesions noted Neuro General: no focal motor deficits Extrem General: Yes full ROM Psych Appearance: grossly normal Immunizations Boostrix Tdap 2.5 Lf unit-8 mcg-5 Lf/0.5 mL intramuscular syringe Performing Provider: Ladonna Tillman MD Performing Location: [facility] Administered by: LORNA Reagan on 07/22/24 14:37 Dose Route Admin Location Dispensed Lot Number Expiration Date [facility] Regulatory Affairs Spec 0.5 mL IM Left Deltoid 0.5 mL [id number] 10/12/26 43330-800-75 [employer] VIS Given Date VIS Provided VIS Publication Date 07/22/24 Single Vaccine 20 Eligibility Eligibility Date Funding Source Not [facility] Eligible 07/22/24 Private Coding Level of Care Code Est Pt Prev Care 40-64y(26678) Diagnoses Physical exam Z00.00 Additional Codes AVA-7 Assessment Billing - AVA-7 Assessment Tool: AVA-7 Assessment 35734 ([id number]) PHQ-9 - 44368 - PHQ-9 Billing: Yes ([id number]) Time Spent (min) 31 Assessment & Plan Assessment & Plan (1) Physical exam: Code(s): Z00.00 - Encounter for general adult medical examination without abnormal findings Category: Medical Plan Today, I discussed with the patient the significance of recurrent surveillance given his history of adenomatous polyps, recommending another colonoscopy in 3-5 years. We reviewed the polyp types and their implications for follow-up intervals. Given his probable overdue tetanus vaccination, I recommended and planned for administration today. Routine blood tests from the previous year returned normal; these will be repeated to confirm continued health stability. Patient was informed and verbally consented to the use of an ambient scribe for clinic note documentation during this visit. I engaged the patient in a discussion about his need for a follow-up colonoscopy due to the history of adenomatous polyps, explaining the interval is based on polyp pathology. We briefly reviewed his understanding of the varying colonoscopy intervals contingent upon specific polyp types. I ensured he perceived the necessity of getting a tetanus booster today due to the probable lapse beyond the 10-year recommendation. Acknowledging the normal result from last year, I suggested repeating laboratory tests to verify ongoing wellness. Orders: Orders Comprehensive [place]. Panel Fast Today Z00.00 - Encounter for general adult medical examination without abnormal findings TDaP Immunization Today Z23 - Encounter for immunization Lipid Panel Today E78.5 - Hyperlipidemia, unspecified Patient Instructions: - Obtain tetanus vaccine today as discussed. - Prepare for follow-up colonoscopy in 3-5 years as previously recommended. - Undergo routine lab tests to ensure general health. - Report any health changes or concerns promptly.
[2024-07-22 14:12] VITALS: BP 116/80; BMI 28.9
== END 2024-07-22 14:46 | disposition home or self-care (01) ==
LOC: HO.HMCH 14:08
PROVIDERS: PCP Nurse Practitioner Family; Visit Provider Internal Medicine
DX: Z23 Encounter for immunization (principal); Z00.00 Encounter for general adult medical examination without abnormal findings

== ENCOUNTER → 2024-07-22 14:08 | Outpatient (BNVA) | payer OTHER, SELFPAY | PROVIDERS: PCP Nurse Practitioner Family; Visit Provider Internal Medicine | DX: Z00.00 Encounter for general adult medical examination without abnormal findings (principal); Z23 Encounter for immunization; I10 Essential (primary) hypertension | CPT/HCPCS: 90471; 90715; 96127; 99396 ==

== ENCOUNTER 2025-03-25 10:28 | Outpatient (AMB) | payer OTHER, SELFPAY ==
--- NOTE | 2025-03-25 10:46 | A.OFFPC_ITS ---
Vital Signs 03/25/25 10:48 Height 5 ft 8 in Weight 194 lb 2 oz BMI 29.5 BP 114/76 Blood Pressure Location Lt brachial Position Sitting Pulse 83 Pulse Source Pulse Oximeter Temp 97.3 F Temp Source Temporal Artery Scan Pulse Oximetry (%) 98 Oxygen Delivery Method Room Air Intake Visit Reasons: follow up Research And Evaluation Manager Required: Yes Research And Evaluation Manager Language: Greek Information Interpreted: non-clinical & clinical Slot Machine Department Floorperson: Not Required per policy Accompanied by: Self / Same As Patient Allergies No Known Allergies Allergy (Verified 03/25/25 11:02) Medication List - Last Reconciled 03/25/25 by Ladonna Tillman MD No Known Home Meds Tobacco use date assessed: 03/25/25 Dental Screening Dental Screen Date: 07/22/24 HPI HPI Comments History of Present Illness Details The patient is a 54 year old individual presenting for evaluation of anxiety and sexual dysfunction. The patient reports feeling overwhelmed with so many things in my head due to being the sole income earner for the household. Related to intimacy, the patient endorses having erections but experiences premature ejaculation, which the patient was previously able to control but has since lost the ability to do so. Also has excessive cerumen in both ears and will be prescribed Debrox. The patient has no known allergies and takes no medications. A colonoscopy was performed last year, and a repeat procedure was recommended in 3 to 5 years. 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 Current occupational exposures/hazards: No Cognitive needs: No Hearing needs: No Vision needs: Yes Questionnaire Thrive Questionnaire Date Thrive assessed: 03/25/25 I am a: Patient What is your living situation today?: I have a place to live, but I am worried about losing it in the future Within the past 12 months, did the food you bought not last and you didn't have the money to get more?: Often true Within the past 12 months, did you worry whether your food would run out before you got money to buy more?: Often true Do you have trouble paying for medicines?: Yes Do you have trouble getting transportation to medical appointments?: No Do you have trouble paying your heating and electricity bill?: No Do you have trouble taking care of your child, family member or friend?: No Do you have trouble with day-to-day activities such as bathing, preparing meals, shopping, managing finances, etc.?: No Are you currently unemployed and looking for a job?: No Are you interested in more education?: No Currently or been in a relationship where the following occur: No concerns reported THRIVE Score: 3 AUDIT C Alcohol Use Questionnaire (AUDIT-C) 1. How often do you have a drink containing alcohol?: Never Total Score: 0 AVA-7 AMB Questionnaire AVA-7 Date AVA - 7 assessed: 07/22/24 Feeling nervous, anxious, or on edge: 0 = Not at all Not being able to stop or control worryin = Several days Worrying too much about different things: 1 = Several days Trouble relaxin = Several days Being so restless that it is hard to sit still: 0 = Not at all Becoming easily annoyed or irritable: 1 = Several days Feeling afraid as if something awful might happen: 0 = Not at all Total AVA-7 score (0-4 normal; 5-9 mild; 10-14 moderate; 15-21 severe): 4 Source: Developed by Drs. Yeyo Pompa, Ling Brantley, Devendra Hill and colleagues, with an educational sylvester from [employer]. AVA-7 Assessment Billing AVA-7 Assessment Tool: AVA-7 Assessment 12597 Review of Systems Const All systems reviewed & are unremarkable except as noted in HPI and below Card Denies chest pain at rest, Denies chest pain with activity, Denies edema, Denies irregular heart rhythm, Denies claudication, Denies dyspnea, Denies dyspnea on exertion, Denies orthopnea, Denies paroxysmal nocturnal dyspnea and Denies slow heart rate Resp Denies cough, Denies dyspnea and Denies dyspnea on exertion GI Denies abdominal pain, Denies change in bowel habits, Denies excessive flatus, Denies nausea and Denies vomiting Physical exam (Primary Care) Vital Signs: Last Vital Signs Temp 97.3 F 03/25/25 10:48 Pulse 83 03/25/25 10:48 BP 114/76 03/25/25 10:48 Pulse Ox 98 03/25/25 10:48 Oxygen Delivery Method Room Air 03/25/25 10:48 BMI result Body Mass Index 29.5 Tobacco/Smoking Status: Tobacco use Status Tobacco use date assessed 03/25/25 03/25/25 10:51 Patient Tobacco Use Status Never used Tobacco 03/25/25 10:51 e-Cigarette/Vaping Use Never Used 03/25/25 10:51 Thrive Assessment: Date of Thrive Assessment Date Thrive assessed 03/25/25 03/25/25 10:51 Currently or been in a relationship where the following occur: No concerns reported HENMT Ears: unable to visualize TM bilaterally Resp Effort & Inspection: normal respiratory effort Auscultation: clear to auscultation bilaterally Cardio Jugular venous distension: no JVD Rate: regular rate Rhythm: regular rhythm Heart sounds: S1 normal heart sound present and S2 normal heart sound present Extrem General: Yes full ROM Coding Level of Care Code Est Pt Level 3 (39667) Diagnoses Loss of libido R68.82 Excessive cerumen in both ear canals H61.23 Additional Codes AVA-7 Assessment Billing - AVA-7 Assessment Tool: AVA-7 Assessment 67413 ([id number]) Time Spent (min) 18 Assessment & Plan Assessment & Plan (1) Loss of libido: Code(s): R68.82 - Decreased libido Category: Medical (2) Excessive cerumen in both ear canals: Code(s): H61.23 - Impacted cerumen, bilateral Category: Medical Plan Plan 1. Premature Ejaculation The patient reports a loss of control over previously manageable premature ejaculation. To evaluate for a potential hormonal cause, a testosterone level will be ordered. The patient was advised to have the blood drawn around 8:00 AM to align with the typical hormonal peak. 2. Anxiety The patient reports significant life stressors, including being the sole income earner, which are contributing to feelings of being overwhelmed and anxious. 3. Cerumen Impaction Physical exam revealed cerumen in both ears. 4. Colon Cancer Screening The patient had a colonoscopy last year. A follow-up colonoscopy is recommended in 3 to 5 years per prior recommendations. Orders: Orders Testosterone, Free/Total Today R68.82 - Decreased libido Medications: New carbamide peroxide 6.5% (Debrox) 10 drps otic (ears) Q12H 15 mL 1RF 4 days H61.23 - Impacted cerumen, bilateral
[2025-03-25 10:48] VITALS: BP 114/76; PULSE 83; TEMP 36.3; O2SAT 98; BMI 29.5
--- OUTSIDE RECORDS SUMMARY | 2025-03-25 13:06 | XMS_ITS | Clinical Summary ---
Author Organization [employer] Address [address] [place] [address] [address] [place] [address] Care Team Providers Care Grievance Coordinator Name Role Phone Unavailable Primary Care Provider Unavailabl e Social History Tobacco Use Types Packs/Day Years Used Date Smoking Tobacco: Never Assessed Sex and Gender Information Value Date Recorded Sex Assigned at Male 02/28/2022 10:39 AM EDT Legal Sex Male 10:39 AM EDT Gender Identity Male 02/28/2022 10:39 AM EDT Sexual Orientation Choose not to disclose 2021 10:39 AM EDT Last Filed Vital Signs Vital Sign Reading Time Taken Comments Blood Pressure 124/100 03/03/2021 12:11 AM EDT Pulse 80 03/03/2021 12:11 AM EDT Temperature - - Respiratory Rate - - Oxygen Saturation - - Inhaled Oxygen Concentration - - Weight 87.5 kg (192 lb 12.8 oz) 021 12:11 AM EDT Height 175.3 cm (5' 9 ) 03/03/2021 12:1 1 AM EDT Body Mass Index 28.47 03/03/2021 12:11 AM EDT Plan of Treatment Health Maintenance Due Date Last Done Comments CT Colonography 1971 Colonoscopy 1971 Colorectal Cancer Screening 1971 Depression Screening 1971 FIT DNA/Cologuard 1971 FIT 1971 FOBT 1971 Sigmoidoscopy 1971 Disability Screening 1971 Alcohol/Substance Use Screening 1983 Tobacco Screening 1983 DTaP/Tdap/Td Vaccines (1 - Tdap) 08/02/1990 Hepatitis B Vaccines (1 of 3 - 19+ 3-dose series) 08/02/1990 Pneumococcal Vaccine: 50+ Years (1 of 1 - PCV) 08/02/2021 Zoster Vaccines (1 of 2) 08/02/2021 COVID-19 Vaccine (4 - 2024-2 6 season) 2024 07/06/2021, 02/04/2021, 01/14/2021 Influenza Vaccine (#1) 2024 02/14/2023 Lipid Panel 02/17/2026 02/17/2021 RSV Patients and Patients Aged 60 years or older (1 - 1-dose 75+ series) 08/02/2046 HIB Vaccines Aged Out No longer eligi ble based on patient's age to complete this topic HPV Vaccines Aged Out No longer eligi ble based on patient's age to complete this topic Hepatitis A Vaccines Aged Out No long er eligible based on patient's age to complete this topic IPV Vaccines Aged Out No longer eligi ble based on patient's age to complete this topic Meningococcal B Vaccine Aged Out No l onger eligible based on patient's age to complete this topic Meningococcal Vaccine Aged Out No eduar ines eligible based on patient's age to complete this topic RSV under 20 months Aged Out No longe r eligible based on patient's age to complete this topic Rotavirus Vaccines Aged Out No longer eligible based on patient's age to complete this topic Procedures Procedure Name Priority Date/Time Associated Diagnosis Comments LIPID PANEL, STANDARD Routine 02/17/2021 4:18 PM EDT from Last 3 Months or Most Recently Relevant to Health Maintenance Results * (ABNORMAL) LIPID PANEL, STANDARD (02/17/2021 4:18 PM EDT) Chol/HDLC Ratio 3.4 <5.0 (calc) [facility] Cholesterol, Total 181 <200 mg/dL [facility] HDL Cholesterol 54 > OR = 40 mg/dL [facility] LDL Cholesterol 112(H) mg/dL (calc) [facility] Comment: Reference range: <100 Desirable range <100 mg/dL for primary prevention; <70 mg/dL for patients with CHD or diabetic patients with > or = 2 CHD risk factors. LDL-C is now calculated using the Billy calculation, which is a validated novel method providing better accuracy than the Friedewald equation in the estimation of LDL-C. Ousmane CROW et al. ALONDRA. 2013;310(19): 9848-8071 (http://education.Milk.com/faq/OJM035) Non-HDL Cholesterol 127 <130 mg/dL (calc) [facility] Comment: For patients with diabetes plus 1 major ASCVD risk factor, treating to a non-HDL-C goal of <100 mg/dL (LDL-C of <70 mg/dL) is considered a therapeutic option. Triglycerides 68 <150 mg/dL [facility] 02/17/2021 4:18 PM EDT us Becky Robles MD LAB BLOOD ORDERABLES Final Result [facility] [address] from Last 3 Months or Most Recently Relevant to Health Maintenance
--- OUTSIDE RECORDS SUMMARY | 2025-03-25 13:06 | XMS_ITS | Encounter Summary ---
Author Organization [facility] Address [address] [place] [address] [address] [place] [address] Care Team Providers Care Piercer Name Role Phone Elvi PhilipP Primary Care Provider Yaneth vailable Anita Walton MAIL LIST LIBRARIAN Primary Care Provider [phone] Encounter Details Date Type Department Care Team (Latest Contact Info) Description 02/11/2021 Abstract [facility] CONVERSIONS Dental, Provider, DDS Social History Tobacco Use Types Packs/Day Years Used Date Smoking Tobacco: Never Assessed Sex and Gender Information Value Date Recorded Sex Assigned at Male 02/28/2022 10:39 AM EDT Legal Sex Male 10:39 AM EDT Gender Identity Male 02/28/2022 10:39 AM EDT Sexual Orientation Choose not to disclose 2021 10:39 AM EDT documented as of this encounter Plan of Treatment Not on file documented as of this encounter Visit Diagnoses Not on filedocumented in this encounter Care Teams Piercer Relationship Specialty Start Date End Date Elvi Philip FNP PCP - General Family Medicine 02/17/21 02/01/23 Anita Walton NP [address] [place] [id number] PCP - General Family Medicine 02/02/23 01/15/25 documented as of this encounter
== END 2025-03-25 11:14 | disposition home or self-care (01) ==
LOC: HO.HMCH 10:29
PROVIDERS: PCP Internal Medicine; Visit Provider Internal Medicine
DX: R68.82 Decreased libido (principal); H61.23 Impacted cerumen, bilateral

== ENCOUNTER → 2025-03-25 10:28 | Outpatient (BNVA) | payer OTHER, SELFPAY | PROVIDERS: Visit Provider Internal Medicine | DX: R68.82 Decreased libido (principal); F41.9 Anxiety disorder, unspecified; F52.4 Premature ejaculation; H61.23 Impacted cerumen, bilateral | CPT/HCPCS: 96127; 99212 ==

== ENCOUNTER 2025-04-08 07:11 | Outpatient (REF) | payer OTHER, SELFPAY ==
--- OUTSIDE RECORDS SUMMARY | 2025-04-08 07:14 | XMS_ITS | Clinical Summary ---
Author Organization [employer] Address [address] [place] [address] [address] [place] [address] Care Team Providers Care Pneumatic Tool Repairer Name Role Phone Unavailable Primary Care Provider [...] LDL-C. Ousmane CROW et al. ALONDRA. 2013;310(19): 1547-6928 (http://education.Zaask.com/faq/ENN405) Non-HDL Cholesterol 127 <130 mg/dL (calc) [facility] Comment: For patients with diabetes plus 1 major ASCVD risk factor, treating to a non-HDL-C goal of <100 mg/dL (LDL-C of <70 mg/dL) is considered a therapeutic option. Triglycerides 68 <150 mg/dL [facility] 02/17/2021 4:18 PM EDT us Becky Robles MD LAB BLOOD ORDERABLES Final Result [facility] [address] from Last 3 Months or Most Recently Relevant to Health Maintenance
--- OUTSIDE RECORDS SUMMARY | 2025-04-08 07:14 | XMS_ITS | Encounter Summary ---
Author Organization [employer] Address [address] [place] [address] [address] [place] [address] Care Team Providers Care Plate Worker Helper Name Role Phone Elvi PhilipP Primary Care Provider Yaneth vailable Anita Walton LOOP MACHINE OPERATOR Primary Care Provider [phone] Encounter Details Date Type Department Care Team (Latest Contact Info) Description 02/11/2021 Abstract [facility] CONVERSIONS Dental, Provider, DDS Social History Tobacco [...] on filedocumented in this encounter Care Teams Plate Worker Helper Relationship Specialty Start Date End Date Elvi Philip FNP PCP - General Family Medicine 02/17/21 02/01/23 Anita Walton NP [address] [place] [id number] PCP - General Family Medicine 02/02/23 01/15/25 documented as of this encounter
== END 2025-04-08 07:12 | disposition home or self-care (01) ==
LOC: HO.LAB 07:11
PROVIDERS: PCP Internal Medicine; Visit Provider Internal Medicine
DX: R68.82 Decreased libido (principal)
CPT/HCPCS: 36415; 84402; 84403